=== PATIENT | male | born 1945 | race Caucasian/White ===

== ENCOUNTER 2020-09-02 07:13 | Observation (INO) | payer OTHER, BC ==
--- NOTE | 2020-08-26 12:15 | NUR ---
PT HISTORY OBTAINED,EKG DONE,COPY GIVEN TO NURSING INFORMATICS ANALYST FOR REVIEW.
[2020-08-26 12:21] LABS: BASOPHIL % 1.3 % (0.2-1.5); PLATELET COUNT 230 x10^3mcL (152-348); RED CELL DISTRIBUTION WIDTH 13.6 % (12.1-16.2)
[2020-08-26 12:24] LABS: CALCIUM 9.3 mg/dL (8.5-10.1); CARBON DIOXIDE 27.8 mmol/L (21-32); CHLORIDE SERUM 99 mmol/L (98-107); CREATININE SERUM 1.1 mg/dL (0.7-1.3); GLUCOSE SERUM 96 mg/dL (74-106); POTASSIUM SERUM 4.5 mmol/L (3.5-5.1); SODIUM SERUM 134 mmol/L (136-145)
--- NOTE | 2020-08-26 14:30 | NUR ---
DR GREEN HERE. UPDATED WITH PT STATUS AND EKG REPORT. NO NEW ORDERS OBTAINED.
[~2020-09-02] VITALS: Ht 167.6 cm; Wt 87.5 kg
[2020-09-02 07:41] VITALS: BP 159/76
[2020-09-02 18:31] LABS: PHOSPHOROUS 3.2 mg/dL (2.5-4.9)
[2020-09-02 18:32] LABS: CHOLESTEROL/HDL RATIO 1.8
[2020-09-02 18:43] LABS: T3 TOTAL 1.22 ng/mL
--- NOTE | 2020-09-02 18:43 | NUR ---
REC'D PT FROM [facility]. S/P BIV PM INSERTION. AAOX4, SPEECH CLEAR, FOLLOWS COMMANDS. BOBBI SNOQUALMIE- HEARING AIDS AT BEDSIDE. TELE 7. DENIES CP, DIZZINESS, OR PALPITATIONS. DENIES RESP DISTRESS OR SOB. BREATHING EVEN/UNLABORED ON RA. L UPPER CHEST DRESSING CDI. SHAYLA SLING IN PLACE. ABD SOFT/ROUND. DENIES ABD PAIN, TENDERNESS, OR N/V. VOIDING FREELY. MILD GEN WEAKNESS. AMBULATORY. TRACE EDEMA BLE. RH IV, SITE WNL. ORIENTED TO DEVICES AND SURROUNDINGS. CALL LIGHT WITHIN REACH, BED AT LOWEST POSITION.
--- NOTE | 2020-09-02 19:11 | NUR ---
DR. CHIN NOTIFIED OF ELEVATED TROP AT 0.123.
[2020-09-02 19:15] LABS: FREE T4 1.08 ng/dL (0.76-1.46); FREE THYROXINE INDEX 2.5 ug/dL (1.4-4.5)
[2020-09-02 19:25] VITALS: BP 149/81
--- NOTE | 2020-09-02 19:55 | NUR ---
PT RECEIVED FROM [facility]. A&O X4. TELE 7 PACED. STRONG PULSES ALL EXTREMITIES, BLE TRACE EDEMA. CLEAR LUNG SOUNDS ON ROOM AIR OXYGEN SATURATION >95%. ACTIVE BOWEL SOUNDS X4, VOIDS. MILD GENERALIZED WEAKNESS WITH SHAYLA SLING.LEFT CHEST SUGICAL SITE COVERED ITH DRESSING DRY AND INTACT. NO C/O OR SIGNS OF PAIN, DISTRESS, OR DISOCMFORT. RH AND RFA IV. BED ON LOWEST LEVEL, CALL LIGHT WITHIN REACH, BED RAILS UP X2. WILL CONTINUE TO MONITOR.
[2020-09-02 20:30] VITALS: BP 145/85
--- NOTE | 2020-09-02 20:52 | NUR ---
BIOF[employer] PRODUCTION TECHNICIAN RECEIVED CALL FROM PHARMACY INDICATING THAT MD GREEN ORDERED ATB THAT PT IS ALLERGIC TO. [employer] PRODUCTION TECHNICIAN CALLED MD GREEN TO MAKE HIM AWARE, WILL F/U.
--- NOTE | 2020-09-03 01:22 | NUR ---
PT RESTING IN BED WITH EYES CLOSED. NO C/O OR SIGSNS OF PAIN, DISTRESS, DISCOMFORT, CHEST PAIN/TIGHTNESS, DRESSING CLEAN AND INTACT. MEDICINE AIDE HAS STILL NOT BEEN ABLE TO GET INTO CONTAC WITH md GREEN IN REGARDS TO PT ALLERGY AND ATB ORDERED. BED ON LOWEST LEVEL, CALL LIGHT WITHIN REACH, BED RAILS UP X2. WILL CONTINUE TO MONITOR.
[2020-09-03 05:42] VITALS: BP 137/68
[2020-09-03 06:17] LABS: BASOPHIL % 0.4 % (0.2-1.5); PLATELET COUNT 232 x10^3mcL (152-348); RED CELL DISTRIBUTION WIDTH 13.7 % (12.1-16.2)
--- NOTE | 2020-09-03 06:31 | NUR ---
PT RESTING IN BED WITH EYES CLOSED. NO C/O OR SIGNS OF PAIN, DISTRESS,OR DISCOMFORT. ON ROOM AIR OXYGEN SATURATION >95%. MD CHIN MADE AWARE PT ALLERGY TO PCN AND ATB WHICH MD INDICATED HE WILL ADJUST. DRESSING TO LEFT CHEST DRY AND INTACT. BED ON LOWEST LEVEL, CALL LIGHT WITHIN REACH, BED RAILS UP X2. WILL ENDORSE TO ONCOMING SHIFT.
[2020-09-03 07:07] LABS: CALCIUM 8.5 mg/dL (8.5-10.1); CHLORIDE SERUM 99 mmol/L (98-107); CREATININE SERUM 1.1 mg/dL (0.7-1.3); GLUCOSE SERUM 122 mg/dL (74-106); MAGNESIUM 1.8 mg/dL (1.8-2.4); PHOSPHOROUS 3.7 mg/dL (2.5-4.9); POTASSIUM SERUM 4.4 mmol/L (3.5-5.1); SODIUM SERUM 133 mmol/L (136-145)
--- NOTE | 2020-09-03 07:15 | NUR ---
RECEIVED PT THIS AM AAOX4 AND IN NO APPARENT DISTRESS. RESP EVEN AND UNLABORED. LEFT UPPER CHEST S/P PACEMAKER SITE CLEAN DRY AND INTACT. NO BLEEDING, DRAINAGE OR WARMTH NOTED. PT DENIES PAIN TO SITE.IV TO RIGHT HAND PATENT. CALL LIGHT IN REACH AND ALL NEEDS ATTENDED.
[2020-09-03 08:36] VITALS: BP 140/72
[2020-09-03 12:59] VITALS: BP 142/77
[2020-09-03] MEDS ORDERED: FLO4 PO (13:01)
[2020-09-03] MEDS ORDERED: ELIQUIS5 MG PO (13:01)
[2020-09-03] MEDS ORDERED: NOR5 PO (13:05)
[2020-09-03] MEDS ORDERED: HYD25 PO (13:06)
[2020-09-03] MEDS ORDERED: PRI20 PO (13:08)
[2020-09-03] MEDS ORDERED: ROSUVASTATIN CA10 MG PO (13:09)
--- NOTE | 2020-09-03 15:01 | NUR ---
PT DISCHARGED HOME W ALL PERSONNAL BELONGINGS AT HAND.PT AAOX4 IN NO ACUTE DISTRESS NOTED. PT DENIES ANY CP OR SOB.DRESSING TO LEFT UPPER CHEST CLEAN DRY AND INTACT.NO BLEEDIGN OR DRAINAGE NOTED.THOROUGHT INSTRUCTIONS GIVEN ON S/P PACEMAKER PLACEMENT CARE. PT INSTRUCTED TO F/U W DIRECTOR OF CHANNEL MARKETING AND THAT MED LIST WAS SENT TO PREFFERED PHARMACY. PT ALSO INSTRUCTED ON INSTRUCTIONS ON MEDICATIONS. PT VERBALIZED UNDERSTANDING INSTRUCTIONS. IV TO RIGHT HAND AND RFA DISCONTINUE AND INTACT. BLEEDING CONTROLLED.
== END 2020-09-03 15:22 | disposition home or self-care (01) ==
LOC: DS 07:13 → DU 17:44
PROVIDERS: Internal Medicine; ADMIT Specialist; ATTEND Specialist
DX: R00.1 Bradycardia, unspecified (principal); I48.19 Other persistent atrial fibrillation; I11.0 Hypertensive heart disease with heart failure; I50.32 Chronic diastolic (congestive) heart failure; Z20.822 Contact with and (suspected) exposure to COVID-19; Z95.0 Presence of cardiac pacemaker
CPT/HCPCS: 33207; 33208; 33225; 33249; 83880; 84439; C1769; C1785; C1894; C1900; G0378; J0690; J2001; J2175; J2250; J2405; J2704; J3010; J3370; Q9967; U0003